=== PATIENT | male | born 1975 | race Caucasian/White ===

== ENCOUNTER 2017-08-26 13:53 | Emergency (ER) | payer OTHER ==
--- OUTSIDE RECORDS SUMMARY | 2017-08-26 13:55 | XMS REPORT | Clinical Summary ---
:1975 Author Organization [facility] Address [address] [place] [address] Phone Care Team Providers Name Role Phone Unavailable Primary Care Provider Unavailable Allergies No Known Allergies Current Medications No known medications Active Problems Not on file Social History Tobacco Use Types Packs/Day Years Used Date Current Every Day Smoker Cigarettes 1 Alcohol Use Drinks/Week oz/Week Comments No Sex Assigned at Date Recorded Not on file Last Filed Vital Signs Not on file Plan of Treatment Not on file Results Not on fileafter 08/25/2016
[2017-08-26] MEDS ORDERED: NA CHLORIDE 0.9% 1,000 ML ONE ×2 (14:14→14:57)
[2017-08-26] MEDS ORDERED: METOCLOPRAMIDE 10 MG/2mL INJ ONE (14:14)
[2017-08-26 14:25] LABS: Absolute Lymphocytes (CBC) 2.3 K/uL (0.7-4.9); Absolute Monocytes 1.5 K/uL (0.1-1.3); Absolute Neutrophil 7.6 K/uL (1.8-8.0); Basophils % 0.3 % (0-1.3); Eosinophils % 13.1 % (0-4.4); Lymphocytes % 17.6 % (15.3-44.8); MCH 32.8 pg (27.0-35.0); MCV 95.2 fL (80-100); MPV 8.4 fL (7.6-11.3); Monocytes % 11.5 % (3.3-12.3); RBC Red Blood Cell Count 4.52 M/uL (4.33-5.43)
[2017-08-26 14:35] LABS: ALT/SGPT 32 U/L (12-78); AST/SGOT 15 U/L (15-37); Albumin 3.9 g/dL (3.4-5.0); Alkaline Phosphatase 91 U/L (45-117); BUN Blood Urea Nitrogen 18 mg/dL (7-18); Bicarbonate 26 mmol/L (21-32); Bilirubin Direct < 0.1 mg/dL (0-0.2); Bilirubin Total 0.5 mg/dL (0.2-1.0); Creatine Phosphokinase 215 U/L (39-308); Glucose Level 114 mg/dL (74-106); Magnesium 2.1 mg/dL (1.8-2.4); Potassium 4.1 mmol/L (3.5-5.1); Sodium Level 143 mmol/L (136-145)
--- NOTE | 2017-08-26 15:45 | ER ---
Nurse's Notes [facility] Name: Dominguez Vogel Age: 41 yrs Sex: Male : 1975 Arrival Date: 08/26/2017 Time: 13:55 Bed 23 Private MD: Diagnosis: Dehydration Presentation: 08/26 13:50 Presenting complaint: EMS states: Pt has been working outside for extended period of ss time x 3 days. Today, patient was working outside when he became nauseous, dizzy and had muscle cramping. Transition of care: patient was not received from another setting of care. Onset of symptoms was August 26, 2017. Risk Assessment: Do you want to hurt yourself or someone else? Patient reports no desire to harm self or others. Initial Sepsis Screen: Does the patient meet any 2 criteria? No. Patient's initial sepsis screen is negative. Does the patient have a suspected source of infection? No. Patient's initial sepsis screen is negative. Care prior to arrival: Glucose check: 158. 13:50 Method Of Arrival: EMS: [facility] ss 13:50 Acuity: YOVANNY 3 ss Historical: - Allergies: 14:00 No Known Allergies; ss - Immunization history:: Adult Immunizations unknown. - Social history:: Smoking status: Patient uses tobacco products, smokes one pack cigarettes per day. chewing tobacco. - Ebola Screening: : Patient denies exposure to infectious person Patient denies travel to an Ebola-affected area in the 21 days before illness onset. Screenin:27 Abuse screen: Denies threats or abuse. Denies injuries from another. Nutritional kr2 screening: No deficits noted. Tuberculosis screening: No symptoms or risk factors identified. Fall Risk None identified. Assessment: 14:00 General: Appears in no apparent distress. comfortable, well developed, well nourished, kr2 Behavior is calm, cooperative, appropriate for age. Pain: Complains of pain in head Pain does not radiate. Pain currently is 3 out of 10 on a pain scale. Quality of pain is described as aching, dull, Is continuous. Neuro: Level of Consciousness is awake, alert, obeys commands, Oriented to person, place, time, situation, Appropriate for age. Cardiovascular: Capillary refill < 3 seconds in bilateral fingers Patient's skin is warm and dry. Rhythm is sinus rhythm. Respiratory: Airway is patent Respiratory effort is even, unlabored, Respiratory pattern is regular, symmetrical. GI: Abdomen is round non-distended. : Denies inability to void. EENT: Oral mucosa is moist. Derm: Skin is intact, is healthy with good turgor, Skin is pink, warm \T\ dry. Musculoskeletal: Circulation, motion, and sensation intact. 15:00 Reassessment: Patient appears in no apparent distress at this time. Patient and/or kr2 family updated on plan of care and expected duration. Pain level reassessed. Patient is alert, oriented x 3, equal unlabored respirations, skin warm/dry/pink. Patient denies pain at this time. Patient states feeling better. 16:03 Reassessment: Patient appears in no apparent distress at this time. Patient and/or kr2 family updated on plan of care and expected duration. Pain level reassessed. Patient is alert, oriented x 3, equal unlabored respirations, skin warm/dry/pink. Patient denies pain at this time. Patient states feeling better. Vital Signs: 13:55 BP 140 / 81; Pulse 79; Resp 17; Temp 97.8; Pulse Ox 96% on R/A; Weight 81.65 kg; Height kr2 5 ft. 4 in. (162.56 cm); 15:18 BP 123 / 67; Pulse 67; Resp 18; Pulse Ox 97% on R/A; mg2 16:04 BP 112 / 69; Pulse 66; Resp 18; Pulse Ox 100% ; kr2 13:55 Body Mass Index 30.90 (81.65 kg, 162.56 cm) kr2 ED Course: 13:55 Patient arrived in ED. kr2 13:55 Ben Booker PA is PHCP. cp 13:55 Francisco Matthew MD is Attending Physician. cp 14:00 Triage completed. ss 14:00 Aurora Sierra, LAKESHA is Primary Nurse. kr2 14:00 Arm band placed on right wrist. ss 14:00 Patient has correct armband on for positive identification. Bed in low position. Call kr2 light in reach. Side rails up X 1. awake overnight monitor on. Pulse ox on. NIBP on. Door closed. Verbal reassurance given. Head of bed elevated. 14:08 Inserted saline lock: 20 gauge in left forearm, using aseptic technique. Blood kr2 collected. 14:11 EKG done, by technician. reviewed by Ben ACOSTA. sm3 16:03 No provider procedures requiring assistance completed. IV discontinued, intact, kr2 bleeding controlled, No redness/swelling at site. Pressure dressing applied. Administered Medications: 14:14 Drug: NS 0.9% 1000 ml Route: IV; Rate: 1 bolus; Site: left forearm; kr2 14:56 Follow up: Response: No adverse reaction; IV Status: Completed infusion kr2 14:14 Drug: Reglan 10 mg Route: IVP; Site: left forearm; kr2 14:57 Follow up: Response: No adverse reaction; Nausea is decreased kr2 14:56 Drug: NS 0.9% 1000 ml Route: IV; Rate: 1 bolus; Site: left forearm; kr2 16:03 Follow up: Response: No adverse reaction; IV Status: Completed infusion kr2 Outcome: 15:45 Discharge ordered by MD. cp 16:03 Discharged to home ambulatory. kr2 16:03 Condition: good 16:03 Discharge instructions given to patient, Instructed on discharge instructions, follow up and referral plans. Demonstrated understanding of instructions, follow-up care. 16:04 Patient left the ED. kr2 Signatures: Gale Tucker, RN RN ss Ben Booker PA PA cp Reaves, Karey, RN RN kr2 Juan Davis RN [place] [facility] [place] Juliette Martinez 3
--- NOTE | 2017-08-26 15:46 | EDPHYS ---
Physician Documentation [facility] Name: Dominguez Vogel Age: 41 yrs Sex: Male : 1975 Arrival Date: 08/26/2017 Time: 13:55 Bed 23 Private MD: ED Physician Francisco Matthew HPI: 08/26 14:05 This 41 yrs old Male presents to ER via EMS with complaints of dizziness, cp nausea, headache. 14:05 The patient's problem is reported as dizziness. cp 14:05 Onset: The symptoms/episode began/occurred today. Duration: The episode is continuous. cp Associated signs and symptoms: Pertinent positives: headache, nausea, Pertinent negatives: abdominal pain, blurred vision, chest pain, confusion, diaphoresis, numbness, palpitations, shortness of breath, active vomiting. Severity of symptoms: in the emergency department the symptoms have improved mildly. Patient's baseline: Neuro: alert and fully oriented, Motor: no deficits, Ambulation: walks without assistance, Speech: normal. Patient reports he has been working outside for past 3 days. Historical: - Allergies: 14:00 No Known Allergies; ss - Immunization history:: Adult Immunizations unknown. - Social history:: Smoking status: Patient uses tobacco products, smokes one pack cigarettes per day. chewing tobacco. - Ebola Screening: : Patient denies exposure to infectious person Patient denies travel to an Ebola-affected area in the 21 days before illness onset. ROS: 14:08 Constitutional: Negative for body aches, chills, fever, poor PO intake. cp 14:08 Eyes: Negative for injury, pain, redness, and discharge. cp 14:08 ENT: Negative for drainage from ear(s), ear pain, sore throat, difficulty swallowing, difficulty handling secretions. 14:08 Neck: Negative for pain with movement, pain at rest, stiffness, tenderness. 14:08 Cardiovascular: Negative for chest pain, edema, palpitations. 14:08 Respiratory: Negative for cough, shortness of breath, wheezing. 14:08 Abdomen/GI: Positive for nausea, Negative for abdominal pain, diarrhea, constipation, active vomiting. 14:08 : Negative for urinary symptoms. 14:08 Skin: Negative for cellulitis, rash. 14:08 Neuro: Positive for gait disturbance, headache, Negative for altered mental status, speech changes, syncope, near syncope, weakness. 14:08 All other systems are negative. Exam: 14:10 ECG was reviewed by the Attending Physician. cp 14:13 Head/Face: Normocephalic, atraumatic. cp 14:13 Constitutional: The patient appears in no acute distress, alert, awake, non-diaphoretic, non-toxic, well developed, well nourished. 14:13 Eyes: Periorbital structures: appear normal, Pupils: equal, round, and reactive to light and accomodation, Extraocular movements: intact throughout, Conjunctiva: normal, no exudate, no injection, Sclera: no appreciated abnormality, Lids and lashes: appear normal, bilaterally. 14:13 ENT: External ear(s): are unremarkable, Ear canal(s): are normal, clear, TM's: dullness, bilaterally, Nose: is normal, Mouth: Lips: moist, Oral mucosa: moist, Posterior pharynx: is normal, airway is patent, no erythema, no exudate. 14:13 Neck: ROM/movement: is normal, is supple, without pain, no range of motions limitations, no meningismus, no nuchal rigidity. 14:13 Chest/axilla: Inspection: normal, Palpation: is normal, no crepitus, no tenderness. 14:13 Cardiovascular: Rate: normal, Rhythm: regular, Pulses: Pulses are 2+ in right radial artery and left radial artery. JVD: is not appreciated. 14:13 Respiratory: the patient does not display signs of respiratory distress, Respirations: normal, no use of accessory muscles, no retractions, no splinting, no tachypnea, labored breathing, is not present, Breath sounds: are clear throughout, no decreased breath sounds, no stridor, no wheezing. 14:13 Abdomen/GI: Inspection: abdomen appears normal, Bowel sounds: active, all quadrants, Palpation: abdomen is soft and non-tender, in all quadrants, rebound tenderness, is not appreciated, voluntary guarding, is not appreciated, involuntary guarding, is not appreciated. 14:13 Back: pain, is absent, ROM is normal. 14:13 Skin: cellulitis, is not appreciated, no rash present. 14:13 CT study not indicated or reported. Reason for not performing CT: exam negative for cp deficits 14:13 Neuro: Orientation: to person, place \T\ time. Mentation: lucid, able to follow commands, Cerebellar function: is grossly normal, Motor: moves all fours, strength is normal, Sensation: no obvious gross deficits. Vital Signs: 13:55 BP 140 / 81; Pulse 79; Resp 17; Temp 97.8; Pulse Ox 96% on R/A; Weight 81.65 kg; Height kr2 5 ft. 4 in. (162.56 cm); 15:18 BP 123 / 67; Pulse 67; Resp 18; Pulse Ox 97% on R/A; mg2 16:04 BP 112 / 69; Pulse 66; Resp 18; Pulse Ox 100% ; kr2 13:55 Body Mass Index 30.90 (81.65 kg, 162.56 cm) kr2 MDM: 13:57 Patient medically screened. cp 14:30 Differential diagnosis: CVA, TIA, metabolic disorder, dehydration, cardiac arrythmia, cp migraine. 15:12 ED course: VSS. patient resting comfortably in exam room and reports to be feeling cp better. 15:42 Data reviewed: vital signs, nurses notes, lab test result(s), EKG, and as a result, I cp will discharge patient. 15:42 Counseling: I had a detailed discussion with the patient and/or guardian regarding: the cp historical points, exam findings, and any diagnostic results supporting the discharge/admit diagnosis, lab results, to return to the emergency department if symptoms worsen or persist or if there are any questions or concerns that arise at home. Response to treatment: the patient's symptoms have markedly improved after treatment. 08/26 13:57 Order name: Basic Metabolic Panel; Complete Time: 14:41 08/26 14:41 Interpretation: Normal except: CL 109; GLUC 114; CRE 1.40; GFR 56. 08/26 13:57 Order name: CBC with Diff; Complete Time: 14:41 08/26 14:41 Interpretation: Normal except: WBC 13.3; EOSINOPHIL % 13.1; EOSA 1.7; MNA 1.5. 08/26 13:57 Order name: CPK; Complete Time: 14:41 08/26 13:57 Order name: LFT's; Complete Time: 14:41 cp 08/26 13:57 Order name: Magnesium; Complete Time: 14:41 cp 08/26 13:57 Order name: IV; Complete Time: 14:15 cp 08/26 13:57 Order name: EKG; Complete Time: 13:58 cp 08/26 13:57 Order name: Cardiac monitoring; Complete Time: 14:14 cp 08/26 13:57 Order name: EKG - Nurse/Tech; Complete Time: 14:14 cp 08/26 13:57 Order name: Labs collected and sent; Complete Time: 14:14 cp 08/26 13:57 Order name: O2 Per Protocol; Complete Time: 14:15 cp 08/26 13:57 Order name: O2 Sat Monitoring; Complete Time: 14:14 cp EC: Rate is 77 beats/min. Rhythm is regular. MS interval is normal. QRS interval is normal. cp QT interval is normal. T waves are Normal. No ST changes noted. Interpreted by me. Reviewed by me. Administered Medications: 14:14 Drug: NS 0.9% 1000 ml Route: IV; Rate: 1 bolus; Site: left forearm; kr2 14:56 Follow up: Response: No adverse reaction; IV Status: Completed infusion kr2 14:14 Drug: Reglan 10 mg Route: IVP; Site: left forearm; kr2 14:57 Follow up: Response: No adverse reaction; Nausea is decreased kr2 14:56 Drug: NS 0.9% 1000 ml Route: IV; Rate: 1 bolus; Site: left forearm; kr2 16:03 Follow up: Response: No adverse reaction; IV Status: Completed infusion kr2 Disposition: 18:10 Co-signature as Attending Physician, Francisco Matthew MD. rn Disposition: 08/26/17 15:45 Discharged to Home. Impression: Dehydration. - Condition is Stable. - Discharge Instructions: Dehydration, Adult, Rehydration, Adult. - Medication Reconciliation Form, Thank You Letter, Antibiotic Education, Prescription Opioid Use, Work release form form. - Follow up: Private Physician; When: 1 - 2 days; Reason: Recheck today's complaints. - Problem is new. - Symptoms have improved. Signatures: Dispatcher [employer] EDMS Francisco Matthew MD MD rn Smirch, Shelby, RN RN ss Page, Corey, PA PA Aurora Betancourt RN RN kr2 Corrections: (The following items were deleted from the chart) 14:41 14:41 Normal except: WBC 13.3; EOSINOPHIL % 13.1. cp cp 16:04 15:45 08/26/2017 15:45 Discharged to Home. Impression: Dehydration. Condition is kr2 Stable. Forms are Medication Reconciliation Form, Thank You Letter, Antibiotic Education, Prescription Opioid Use. Follow up: Private Physician; When: 1 - 2 days; Reason: Recheck today's complaints. Problem is new. Symptoms have improved. cp
--- NOTE | 2017-08-26 21:35 | EKG ---
Test Date: 2017-08-26 Test Time: 14:05:32 Merchandise Planning Manager: ALISTAIR MEASUREMENT RESULTS: Intervals: Rate: 77 AK: 182 QRSD: 84 QT: 366 QTc: 414 [place]: P: 48 AK: 182 QRS: 16 T: 13 INTERPRETIVE STATEMENTS: Normal sinus rhythm Normal ECG Compared to ECG 01/27/2003 10:42:00 No significant changes Electronically Signed On 08-26-17 21:34:42 CDT by Omi Serra
== END 2017-08-26 16:04 | disposition home or self-care (01) ==
LOC: ER 13:53
DX: E86.0 Dehydration (principal); F17.210 Nicotine dependence, cigarettes, uncomplicated
CPT/HCPCS: 36415; 80048; 80076; 82550; 83735; 85025; 93005; 96361; 96374; 99284; J2765; J7030